=== PATIENT | female | born 1950 | race Two or more races ===

== ENCOUNTER 2019-04-01 14:39 | Inpatient (IN) | payer OTHER ==
[~2019-04-01] VITALS: Ht 144.8 cm; Wt 88.0 kg
[2019-04-14] MEDS ORDERED: SINGULAIR10 MG PO (13:36)
[2019-04-14] MEDS ORDERED: COZAAR100 MG PO (13:36)
[2019-04-14] MEDS ORDERED: ATORVASTATIN CA40 MG PO (13:37)
[2019-04-14] MEDS ORDERED: ASPIR 8181 MG PO (13:37)
[2019-04-14] MEDS ORDERED: ISORBIDE PO (13:37)
[2019-04-14] MEDS ORDERED: LASIX20 MG PO (13:38)
[2019-04-14] MEDS ORDERED: ACID REDUCER20 M1 PO (13:38)
[2019-04-14] MEDS ORDERED: BREO ELLIPTA 21 EACH IH (13:38)
[2019-04-20] MEDS ORDERED: ISOSORBIDE MONO60 MG PO (15:17)
[2019-04-28] MEDS ORDERED: ACID REDUCER20 M1 PO (13:10)
[2019-04-28] MEDS ORDERED: Vitamin B-6 PO (13:11)
[2019-04-28] MEDS ORDERED: Neurin-Sl Tablet Sl SL (13:11)
[2019-04-28] MEDS ORDERED: OXYC1TAB9 PO (13:11)
== END 2019-04-28 19:06 | disposition home or self-care (01) | DRG 329 ==
LOC: SURG 04-14 09:15 → O/R 04-20 09:41 → SURG 04-20 12:15 → ICU 04-21 22:08 → SURH 04-25 11:28
PROVIDERS: ADMIT Surgery
PROC: 3E0F7GC Introduction of Other Therapeutic Substance into Respiratory Tract, Via Natural or Artificial Opening (ICD-10-PCS; 2019-04-20)
PROC: 4A033R1 Measurement of Arterial Saturation, Peripheral, Percutaneous Approach (ICD-10-PCS; 2019-04-20)
PROC: 4A12X4Z Monitoring of Cardiac Electrical Activity, External Approach (ICD-10-PCS; 2019-04-20)
PROC: 0DQN4ZZ Repair Sigmoid Colon, Percutaneous Endoscopic Approach (ICD-10-PCS; principal; 2019-04-20 12:15)
PROC: 0BH17EZ Insertion of Endotracheal Airway into Trachea, Via Natural or Artificial Opening (ICD-10-PCS; 2019-04-21)
PROC: 5A1945Z Respiratory Ventilation, 24-96 Consecutive Hours (ICD-10-PCS; 2019-04-21)
PROC: 0DH67UZ Insertion of Feeding Device into Stomach, Via Natural or Artificial Opening (ICD-10-PCS; 2019-04-21)
PROC: 3E0G76Z Introduction of Nutritional Substance into Upper GI, Via Natural or Artificial Opening (ICD-10-PCS; 2019-04-21)
PROC: 02HV33Z Insertion of Infusion Device into Superior Vena Cava, Percutaneous Approach (ICD-10-PCS; 2019-04-21)
DX: Z43.3 Encounter for attention to colostomy (principal); J95.822 Acute and chronic postprocedural respiratory failure; J69.0 Pneumonitis due to inhalation of food and vomit; K57.20 Diverticulitis of large intestine with perforation and abscess without bleeding; E44.0 Moderate protein-calorie malnutrition; B37.41 Candidal cystitis and urethritis; T17.898A Other foreign object in other parts of respiratory tract causing other injury, initial encounter; B95.2 Enterococcus as the cause of diseases classified elsewhere; K66.0 Peritoneal adhesions (postprocedural) (postinfection); I25.10 Atherosclerotic heart disease of native coronary artery without angina pectoris; I11.9 Hypertensive heart disease without heart failure; E66.01 Morbid (severe) obesity due to excess calories; M62.81 Muscle weakness (generalized)